=== PATIENT | male | born 1970 | race Caucasian/White ===

== ENCOUNTER 2017-08-10 10:25 | Outpatient (CLI) | payer OTHER ==
--- NOTE | 2017-08-10 11:06 | XRay Report ---
ROUTINE CHEST, TWO VIEWS: HISTORY: Hypertension. The trachea, heart, mediastinal contour, lung solis and bony thorax are unremarkable. IMPRESSION: Unremarkable chest x-ray.
== END 2017-08-10 10:26 | disposition home or self-care (01) ==
LOC: XRAY 10:25
PROVIDERS: ATTEND Family Medicine
DX: Z00.00 Encounter for general adult medical examination without abnormal findings (principal); I10 Essential (primary) hypertension
CPT/HCPCS: 71020